=== PATIENT | female | born 1970 | race Caucasian/White ===

== ENCOUNTER 2019-02-08 10:56 | Emergency (ER) | payer SELFPAY ==
[~2019-02-08] VITALS: Ht 157.5 cm; Wt 81.4 kg
[2019-02-08 11:02] VITALS: BP 152/93
[2019-02-08] MEDS ORDERED: CEPH-572 PO (12:48)
== END 2019-02-08 13:27 | disposition home or self-care (01) ==
LOC: ER 10:57
DX: L60.0 Ingrowing nail (principal); M62.82 Rhabdomyolysis; Z98.890 Other specified postprocedural states; Z88.8 Allergy status to other drugs, medicaments and biological substances; Z91.040 Latex allergy status; Z79.2 Long term (current) use of antibiotics
CPT/HCPCS: 73630; 99283

== ENCOUNTER 2024-02-22 08:37 | Outpatient (CLI) | payer MEDICARE, MEDICAID | END 2024-02-22 23:59 | disposition home or self-care (01) | LOC: RAD 08:37 | PROVIDERS: ATTEND Neuromusculoskeletal Medicine & OMM | DX: R32 Unspecified urinary incontinence (principal) | CPT/HCPCS: 95816 ==

== ENCOUNTER 2025-01-04 16:41 | Emergency (ER) | payer MEDICARE, MEDICAID ==
[~2025-01-04] VITALS: Ht 157.5 cm; Wt 54.0 kg
[2025-01-04 16:43] VITALS: BP 113/68; PULSE 86; RESP 16; TEMP 99; O2SAT 95
--- NOTE | 2025-01-04 16:52 | ELECTROCARDIOGRAPH REPORT ---
[facility] Test Date: 2025-01-04 Test Time: 16:50:53 Pat Name: CELIA LOERA Department: EMERGENCY ROOM Room: Gender: F Final Inspector And Tester: MIREILLE : 1970 Requested By: JASBIR CLEMENS Order Number: [id number] Reading MD: Measurements Intervals [place] Rate: 86 P: 98 [place]: 177 QRS: 58 QRSD: 78 T: 180 QT: 417 QTc: 499 Interpretive Statements Sinus rhythm Right atrial enlargement Abnormal T, consider ischemia, lateral leads Please click the below link to view image of tracing.
[2025-01-04 17:29] LABS: MEAN PLATELET VOLUME 8.7 FL (7.4-10.4); RED CELL DISTRIBUTION WIDTH 12.9 % (11.5-14.5)
[2025-01-04 17:41] LABS: CREATININE 0.88 MG/DL (0.40-0.90); TOTAL CARBON DIOXIDE 26.6 MMOL/L (24-32); eCRCL 57 ML/MIN; eGFR 67 ML/MIN
== END 2025-01-04 20:21 | disposition left against medical advice (07) ==
LOC: ER 16:41
DX: R10.9 Unspecified abdominal pain (principal); Z91.040 Latex allergy status; Z88.8 Allergy status to other drugs, medicaments and biological substances; Z53.21 Procedure and treatment not carried out due to patient leaving prior to being seen by health care provider
CPT/HCPCS: 36415; 80053; 83690; 85025; 93005